=== PATIENT | female | born 1995 | race Caucasian/White ===

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

== ENCOUNTER 2017-10-13 15:35 | Emergency (ER) | payer MEDICAID ==
--- NOTE | 2017-10-13 19:38 | ED ---
GI/ HPI - HPI Summary HPI Summary: 25 weeks pt here w/ vaginal itching and swelling for the past few days. She reports this started as itching and she's been scratching the area - she now has one-sided labial swelling with superficial bleeding which she believes is from excoriation. Denies fevers ,chills, nausea, chest pain, SOB, vomiting, diarrhea, abdominal pain, urinary symptoms, vaginal bleeding/spotting , contractions and flank pain. She has history of BV when she first got - doesn't feel the same. This was treated with MetroGel successfully and she has had no symptoms since. She does admit she has been wearing thongs daily. Otherwise healthy - takes vitamins before bed. Has not had intercourse since symptoms started. Leading up to this sample: No ongoing a - History of Current Complaint Chief Complaint: EDUrogenitalProblems Time Seen by Provider: 10/13/17 18:10 Stated Complaint: OB PROBLEM/20 WKS Hx Obtained From: Patient, Family/Topographical Surveyor - male organic chemistry professor Hx Last Menstrual Period: 1 WEEK AGO, SPOTTING Pain Intensity: 7 - Allergy/Home Medications Allergies/Adverse Reactions: Allergies Allergy/AdvReac Type Severity Reaction Status Date / Time bee venom protein (honey bee) Allergy Severe Swelling Verified 10/13/17 18:28 bupropion [From Wellbutrin] Allergy Hives Verified 10/13/17 18:28 Home Medications: Home Medications Pnv No.95/Ferrous Fum/Folic AC [ Formula Tablet] 1 tab PO DAILY [History Confirmed 10/13/17] Sertraline* [Zoloft*] 25 mg PO BEDTIME 10/13/17 [History Confirmed 10/13/17] PMH/Surg Hx/FS Hx/Imm Hx Previously Healthy: Yes Endocrine/Hematology History: Denies: Hx Diabetes, Hx Thyroid Disease Cardiovascular History: Reports: Hx Hypertension - NO MEDS Respiratory History: Denies: Hx Asthma, Hx Chronic Obstructive Pulmonary Disease (COPD) GI History: Denies: Hx Ulcer History: Reports: Other Problems/Disorders - BV in Infectious Disease History: No Infectious Disease History: Denies: Hx Clostridium Difficile, Hx Hepatitis, Hx Human Immunodeficiency Virus (HIV), Hx of Known/Suspected MRSA, Hx Shingles, Hx Tuberculosis, Hx Known/ Suspected VRE, Hx Known/Suspected VRSA, History Other Infectious Disease, Traveled Outside the [place] in Last 30 Days - Family History Known Family History: Negative: Cardiac Disease, Hypertension, Diabetes - Social History Alcohol Use: None Substance Use Type: Reports: Marijuana Substance Use Comment - Amount & Last Used: Stopped smoking at 8 weeks Smoking Status (MU): Current Every Day Smoker Type: Cigarettes Amount Used/How Often: 1 PPD, 7+ YEARS Review of Systems Constitutional: Negative Negative: Fever, Chills, Fatigue Eyes: Negative ENT: Negative Cardiovascular: Negative Respiratory: Negative Gastrointestinal: Negative Positive: see HPI Musculoskeletal: Negative Skin: Negative Neurological: Negative Psychological: Normal All Other Systems Reviewed And Are Negative: Yes Physical Exam Triage Information Reviewed: Yes Vital Signs On Initial Exam: Initial Vitals Temp Pulse Resp BP Pulse Ox 98.3 F 89 16 127/73 99 10/13/17 15:49 10/13/17 15:49 10/13/17 15:49 10/13/17 15:49 10/13/17 15:49 Vital Signs Reviewed: Yes Appearance: Positive: Well-Appearing, No Pain Distress, Well-Nourished Skin: Positive: Warm, Skin Color Reflects Adequate Perfusion, Dry Head/Face: Positive: Normal Head/Face Inspection Eyes: Positive: Normal, EOMI, Conjunctiva Clear ENT: Positive: Normal ENT inspection, Hearing grossly normal, Pharynx normal - mucosa moist Respiratory/Lung Sounds: Positive: Breath Sounds Present Cardiovascular: Positive: Normal Abdomen Description: Positive: Nontender - ab Bowel Sounds: Positive: Present Pelvic Exam: Positive: No Cerv. Motion Tender, Other - External: RT labia majora w/ mild bogginess, edema and erythema - no aleja nodule, pustule or excoriation - mild TTP Internal: copious white curdy d/c. Negative: Active Bleeding, Blood Musculoskeletal: Positive: Normal, Strength/ROM Intact Neurological: Positive: Normal, Sensory/Motor Intact, Alert, Oriented to Person Place, Time, CN Intact II-III Psychiatric: Positive: Normal - in good spirits, interacts well w/ her partner Diagnostics - Vital Signs Vital Signs Temp Pulse Resp BP Pulse Ox 10/13/17 18:27 98.8 F 10/13/17 15:49 98.3 F 89 16 127/73 99 - Laboratory Lab Statement: Any lab studies that have been ordered have been reviewed, and results considered in the medical decision making process. GIGU Course/Dx - Course Course Of Treatment: FHR: 140's - WNL. SUspect yeast vaginitis so will start tx - other cx's taken as she has h/o BV. Advised to f/u w/ OBGYN re: labial swelling if continues for concern of early Batholin's cyst - today, simply appears to be edema from irritation. Danger s/sx of premature reviewed - return to ED if present. - Diagnoses Provider Diagnoses: Yeast vaginitis, Discharge - Sign-Out/Discharge Documenting (check all that apply): Discharge - Discharge Plan Condition: Stable Disposition: HOME Prescriptions: Miconazole VAG.SUPP* [Monistat7*] 100 mg VAGINAL BEDTIME #7 vag.supp Patient Education Materials: (ED), Yeast Infection (ED) Referrals: Mendoza Felipe MD [Medical Doctor] - Additional Instructions: You appear to have a yeast infection. It is important that you complete your medication treatment as directed. He may also improve her symptoms by consuming foods with live active cultures (ie. yogurt) and/or taking a probiotic. Avoid sitting and moist undergarments, wearing thongs, using lubricants, etc. If symptoms persist, follow up with her PROFESSOR OF PRACTICE. *If you develop abdominal pain, cramping, vaginal bleeding or spotting, fevers or chills return to the emergency department. NOTE: the area of swelling along your Right labia could be irritation/ inflammation from itching along w/ infection. If this subsides with treatment, no further action necessary. However if this does not improve, follow-up with OBGYN as you may have beginning of a Bartholins cyst. - Billing Disposition and Condition Condition: STABLE Disposition: HOME
[2017-10-13 20:26] VITALS: BP 129/69
== END 2017-10-13 20:26 | disposition home or self-care (01) ==
LOC: ED 15:35
DX: O23.592 Infection of other part of genital tract in pregnancy, second trimester (principal); Z3A.25 25 weeks gestation of pregnancy; F17.210 Nicotine dependence, cigarettes, uncomplicated; Z86.79 Personal history of other diseases of the circulatory system
CPT/HCPCS: 87480; 87491; 87510; 87591; 87661; 99282

== ENCOUNTER 2018-01-30 07:42 | Inpatient (IN) | payer MEDICAID ==
--- NOTE | 2018-01-30 08:05 | HP ---
General Information - Reason for Visit SROM - General Information Maternal Age: 22 Grav: 1 Para: 0 SAB: 0 IEA: 0 Estimated Due Date: 01/21/18 Determined By: Early Ultrasound Maternal Blood Type and Rh: O Negative - Results this Serology/RPR Result: Non-Reactive Rubella Result: Immune HBsAg Result: Negative HIV Result: Negative GBS Culture Result: Negative Past Medical History Delivery History: See Records Pertinent Past Medical History: Non-Contributory Pertinent Past Surgical History: None Pertinent Family History: See Records - DM - Antepartal Records Antepartal Records: Reviewed, Complicated by: - anemia, placenta previa(resolved), tobacco use Review of Systems Constitutional: Uncomfortable CV Complaint: No Respiratory: Shortness of Breath: No Gastrointestinal: No Nausea/Vomiting, Normal Bowel Movement Genitourinary: Leaking Fluid, No Dysuria, No Bleeding Musculoskeletal: Contractions Neurological: No Headache, No Visual Changes Movement: Normal Exam Allergies/Adverse Reactions: Allergies bee venom protein (honey bee) Allergy (Severe, Verified 10/13/17 18:28) Swelling bupropion [From Wellbutrin] Allergy (Verified 10/13/17 18:28) Hives T:98.8, P:106, R:20, B/P: 156/81, O2:98 - Measurements Height: 5 ft 5 in Weight: 179 lb Body Mass Index (BMI): 29.7 Pre- Weight: 130 lb - Exam Breast: Breast Exam Deferred CVA: No CVA Tenderness Extremities: No Edema Heart: Normal Rhythm/Heart Sounds HEENT: No Significant Findings Lungs: Clear Bilaterally Rectal: Rectal Exam Deferred Reflexes: DTR 2+ Thyroid: No Thyromegaly - Abdominal Exam Abdomen Exam: Fundal Height Consistent with Dates - Ultrasound/Biophysical Profile Ultrasound Status: Not Done Targeted Exam Findings See L&D Outpatient Visit Provider Note for Findings: N/A Estimated Weight: 7lbs 12oz Cervical Exam: 3cm Effacement: 80% Station: -1 Presenting Part: Vertex Membrane Status: SROM Amniotic Fluid Evaluation: Gross Rupture, Clear Bleeding/Discharge: None EFM Findings - External Monitor Findings Baseline Heart Rate: 140 External Monitor Findings: Accelerations Present, No Pattern of Variable or Late Decelerations, Variability Moderate, Baseline Stable Contractions: Regular, Moderate, 45-90 Seconds Contraction Frequency: 4-5 Assessment/Plan - Assessment SROM, early labor - Plan Plan: Admit - Anticipate Vaginal Delivery - Date/Time of Admission Date of Admission: 01/30/18 Time of Admission: 08:00
[2018-01-30 09:30] LABS: ABS Basophils 0 10^3/ul (0-0.2); ABS Eosinophils 0.1 10^3/ul (0-0.6); ABS Lymphocytes 1.9 10^3/ul (1.0-4.8); ABS Neutrophils 9.7 10^3/ul (1.5-7.7); ABS Nucleated RBC 0.1 10^3/ul; Hematocrit 35 % (35-47); Hemoglobin 12.3 g/dl (12.0-16.0); Lymphocyte % 14.8 % (25-47); Mean Corpuscular HGB Conc 35 g/dl (31-36); Mean Corpuscular Hemoglobin 32 pg (27-31); Mean Corpuscular Volume 91 fL (80-97); Mean Platelet Volume 9.9 um3 (7.4-10.4); Nucleated Red Blood Cells % 0.5; Platelet Count 174 10^3/ul (150-450); Red Blood Count 3.87 10^6/ul (4.00-5.40); Red Cell Distribution Width 13 % (10.5-15); White Blood Count 12.8 10^3/ul (3.5-10.8)
--- NOTE | 2018-01-30 12:28 | PN ---
Progress Note - Progress Note Date of Service: 01/30/18 SOAP: Subjective: [Pt reports increased contractions and increasing intensity. Pt is still coping well and does not desire epidural for pain mgmt. ] Objective: [BP:141/78, P:90 r:20, t:97.9] Assessment: [srom EARLY LABOR] Plan: [Cont care, reevaluate PRN]
[2018-01-30] MEDS ORDERED: Oxytocin in LR* 20 UNITS/1,000 ML BAG IVPB ONE (18:11)
--- NOTE | 2018-01-30 18:15 | PN ---
Progress Note - Progress Note Date of Service: 01/30/18 SOAP: Subjective: [Pt reports contraction are not increasing in intensity "by much". Reviewed options and pt agrees to start pitocin. ] Objective: [BP: 158/78, R:20, T:98.1 Baseline: 125bpm, mod variability, +accels, -decels] Assessment: [22 y.o. 41w 2d EGA, SROM, protracted labor NST cat 1] Plan: [1) Reviewed risks versus benefits of expectant mgmt versus augmentation. Pt elects to start pitocin augmentation 2) Reevaluate PRN ]
[2018-01-30] MEDS ORDERED: Oxytocin in LR* 20 UNITS/1,000 ML BAG IVPB SCH (19:00)
--- NOTE | 2018-01-30 22:02 | PN ---
Progress Note - Progress Note Date of Service: 01/30/18 SOAP: Subjective: [Pt reporting increased pressure and back and hip pain. Pt still coping well with contractions with family support, alternating between lying down, ball, hands and knees and toilet. ] Objective: [Pitocin at 3mu baseline: 125bpm, +accels, -decels, mod variability cervix: 6-7cm/100/-1] Assessment: [22 y.o. EGA 41w and 2d. Active labor] Plan: [1) Anticipate vaginal 2) Position changes to encourage descent 3) Therapeutic support]
[2018-01-30] MEDS ORDERED: fentaNYL* 50 MCG/ML 2 ML VIAL (100 MCG VIAL) ONE (23:25)
[2018-01-30] MEDS ORDERED: fentaNYL* 50 MCG/ML 2 ML VIAL (100 MCG VIAL) IV ONE (23:26)
[2018-01-31] MEDS ORDERED: OBEPIDURAL* 250 ML EPIDURAL ONE (01:12)
--- NOTE | 2018-01-31 01:56 | PN ---
Progress Note - Progress Note Date of Service: 01/31/18 Note: Pt vomiting, coping poorly and with strong urge to push. cervical exam 9cm, a trial of pushing was attempted to bring baby lower. On first push cervix reduced with descent. heart rate dropped with the next contraction into the 70s-90s. Intrauterine resuscitation was initiated with position changes, O2 , and pitocin was stopped. Dr. Miranda called and anesthesia. After approx 13 min decel, heart rate returned to a baseline of 125. After several minutes: + accels, mod variability and early decels noted. Pt was counseled on risk versus benefits of c/s if heart rate dropped again and pt expresses understanding. Pt agreeable to try epidural for pain relief and to labor down without pushing. Plan discussed with Dr. Miranda who agrees to epidural, labor down, reinitiate pitocin and reevaluate PRN. Pt comfortable after epidural and resting well. Cat 1 NST.
[2018-01-31] MEDS ORDERED: Famotidine TAB* 20 MG PO PRN (01:58)
[2018-01-31] MEDS ORDERED: Sodium Citrate/Citric Acid* 15 ML UDC PO PRN (01:58)
[2018-01-31] MEDS ORDERED: Phenylephrine IV* 40 MCG/ML 10 ML SYRINGE IV PUSH PRN ×2 (01:58)
[2018-01-31] MEDS ORDERED: Nalbuphine* 10 MG/ML 1 ML VIAL IV PRN (02:04)
[2018-01-31] MEDS ORDERED: Naloxone* 2 MG in NS 0.9% 250 ML* 250 ML IV PRN (02:04)
[2018-01-31] MEDS ORDERED: diPHENhydraMINE IV* 50 MG/ML 1 ml VIAL (BENADRYL) IV PRN (02:04)
[2018-01-31] MEDS ORDERED: Glycerin ADULT SUPP PR PRN (06:58)
[2018-01-31] MEDS ORDERED: RHO D Immune Globulin (HUMAN)* 300 MCG = 1,500 I.U. INJ IM ONE (06:58)
[2018-01-31] MEDS ORDERED: Acetaminophen TAB* 325 MG PO PRN (06:58)
[2018-01-31] MEDS ORDERED: Oxytocin in LR* 20 UNITS/1,000 ML BAG IVPB SCH (07:00)
--- NOTE | 2018-01-31 07:12 | PROCNOTE ---
[facility] OB: Delivery Note - Delivery A Date of : 01/31/18 Time of : 06:27 Sex: Female Score 1 Minute: 9 Score 5 Minutes: 9 Gestational Age in Weeks and Days at Delivery: 41 Weeks and 3 Days Delivery Method: Spontaneous Vaginal Labor: Spontaneous Did Patient attempt ?: N/A, No Previous Amniotic Fluid: Clear Estimated Blood Loss: 250 Anesthesia/Analgesia: IM/IV, CEI for Labor, Nitrous-Labor Delivered By: Estela Osei - Nursery Level of Nursery: Regular/Bedside - Perineum Perineal Injury: 1st Degree Perineal Repair: By Delivering Practioner - Events Delivery Events of Note: Pitocin During Labor, Pitocin Only After Delivery, Supplemental O2 to Mother, Internal Scalp EKG
[2018-01-31] MEDS: Ibuprofen TAB* 600 MG PO PRN ×3 (10:06→22:54)
[2018-01-31] MEDS: Docusate CAP* 100 MG PO SCH ×3 (10:06→21:14)
[2018-01-31] MEDS: Dibucaine 1% 28.35 GM TUBE PR PRN (11:08)
[2018-01-31] MEDS: Witch Hazel PAD* JAR TOPICAL PRN (11:08)
[2018-02-01] MEDS: Ibuprofen TAB* 600 MG PO PRN ×3 (05:13→19:58)
[2018-02-01 06:14] LABS: ABS Basophils 0.1 10^3/ul (0-0.2); ABS Eosinophils 0.1 10^3/ul (0-0.6); ABS Lymphocytes 2.8 10^3/ul (1.0-4.8); ABS Monocytes 1.4 10^3/ul (0-0.8); ABS Neutrophils 16.4 10^3/ul (1.5-7.7); ABS Nucleated RBC 0 10^3/ul; Eosinophil % 0.5 % (0-6); Hematocrit 30 % (35-47); Hemoglobin 10.8 g/dl (12.0-16.0); Lymphocyte % 13.6 % (25-47); Mean Corpuscular HGB Conc 36 g/dl (31-36); Mean Corpuscular Hemoglobin 32 pg (27-31); Mean Corpuscular Volume 90 fL (80-97); Mean Platelet Volume 9.5 um3 (7.4-10.4); Nucleated Red Blood Cells % 0.1; Platelet Count 147 10^3/ul (150-450); Red Blood Count 3.36 10^6/ul (4.00-5.40); Red Cell Distribution Width 13 % (10.5-15); White Blood Count 20.9 10^3/ul (3.5-10.8)
[2018-02-01] MEDS: Simethicone TAB* 80 MG TAB.CHEW PO SCH ×2 (08:12→08:13)
[2018-02-01] MEDS: OBEPIDURAL* 250 ML EPIDURAL SCH (08:12)
[2018-02-01] MEDS: Docusate CAP* 100 MG PO SCH ×3 (08:34→19:58)
[2018-02-01] MEDS: Ferrous Gluconate TAB* 324 MG TAB PO SCH (08:38)
[2018-02-01] MEDS: Nicotine PATCH 7 MG/24 HR* PATCH TRANSDERM SCH (15:17)
[2018-02-01] MEDS: Dibucaine 1% 28.35 GM TUBE PR PRN (15:21)
[2018-02-01] MEDS ORDERED: Nicotine Patch Removal NOTE PATCH OFF SCH (21:00)
[2018-02-02] MEDS: Ferrous Gluconate TAB* 324 MG TAB PO SCH (07:16)
[2018-02-02] MEDS: Ibuprofen TAB* 600 MG PO PRN (07:24)
[2018-02-02] MEDS: Docusate CAP* 100 MG PO SCH (07:24)
[2018-02-02 07:58] VITALS: BP 155/69
[2018-02-02] MEDS: Witch Hazel PAD* JAR TOPICAL PRN (10:11)
[2018-02-02] MEDS: Dibucaine 1% 28.35 GM TUBE PR PRN (10:11)
[2018-02-02] MEDS: Nicotine PATCH 7 MG/24 HR* PATCH TRANSDERM SCH (10:11)
== END 2018-02-02 11:17 | disposition home or self-care (01) | DRG 560 ==
LOC: MCHOBOUT 07:42 → MCHOB 08:02
PROVIDERS: ADMIT Midwife; ATTEND Midwife
PROC: 4A1HXCZ Monitoring of Products of Conception, Cardiac Rate, External Approach (ICD-10-PCS; 2018-01-30)
PROC: 10E0XZZ Delivery of Products of Conception, External Approach (ICD-10-PCS; principal; 2018-01-31)
PROC: 10H073Z Insertion of Monitoring Electrode into Products of Conception, Via Natural or Artificial Opening (ICD-10-PCS; 2018-01-31)
PROC: 4A1H74Z Monitoring of Products of Conception, Cardiac Electrical Activity, Via Natural or Artificial Opening (ICD-10-PCS; 2018-01-31)
PROC: 0HQ9XZZ Repair Perineum Skin, External Approach (ICD-10-PCS; 2018-01-31)
DX: O48.0 Post-term pregnancy (principal); O63.9 Long labor, unspecified; O69.3XX0 Labor and delivery complicated by short cord, not applicable or unspecified; O99.334 Smoking (tobacco) complicating childbirth; O76 Abnormality in fetal heart rate and rhythm complicating labor and delivery; O70.0 First degree perineal laceration during delivery; Z3A.41 41 weeks gestation of pregnancy; Z37.0 Single live birth; Z88.8 Allergy status to other drugs, medicaments and biological substances; Z91.030 Bee allergy status; Z67.41 Type O blood, Rh negative
CPT/HCPCS: 36415; 85025; 85461; 86850; 86900; 86901; A9270-GY; J1200; J2790; J3010

== ENCOUNTER 2018-08-19 11:57 | Inpatient (IN) | payer MEDICAID, OTHER ==
--- NOTE | 2018-08-19 13:34 | ED ---
Psychiatric Complaint - HPI Summary HPI Summary: A 23 y/o F presents to ED for MHE due to SI that has been worsening over the past week. She denies having a plan. Patient says she became depressed after giving to her first child 7 months ago. She states the baby is healthy, taking formula and is a "good" baby. The baby's father has not been in the picture for the past 4 months, prior to that though, he would help baby sit. She says they are working on their relationship. The patient's mother is in the area and trinh to provide support. She denies previous SI, MH diagnoses, as well as any hospital psych admission. [place] [id number] [place] she did elaborate further on this. 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 She drank a [place] ice tea and a beer last night; she smokes marijuana sometimes to calm herself down. She says she cried a lot last night, until she smoked the marijuana. Today, a co-worker asked her how she was doing and that caused her to start crying again. Pt is not tearful at bedside with ED provider. - History Of Current Complaint Chief Complaint: EDMentalHealth Time Seen by Provider: 08/19/18 12:52 Hx Obtained From: Patient Hx Last Menstrual Period: 1 WEEK AGO, SPOTTING Onset/Duration: Gradual Onset, Lasting Days, Still Present Severity Initially: Moderate Severity Currently: Moderate Character: Depressed Aggravating Factor(s): Recent Stress Has Suicidal: Reports: Thoughts. Denies: With A Plan - Allergies/Home Medications Allergies/Adverse Reactions: Allergies Allergy/AdvReac Type Severity Reaction Status Date / Time bee venom protein (honey bee) Allergy Severe Swelling Verified 08/19/18 12:47 bupropion [From Wellbutrin] Allergy Hives Verified 08/19/18 12:47 pumpkin Allergy Hives Verified 08/19/18 12:47 Home Medications: Home Medications NK [No Home Medications Reported] 08/19/18 [History Confirmed 08/19/18] PMH/Surg Hx/FS Hx/Imm Hx Previously Healthy: Yes Endocrine/Hematology History: Denies: Hx Diabetes, Hx Thyroid Disease Cardiovascular History: Reports: Hx Hypertension - NO MEDS Respiratory History: Denies: Hx Asthma, Hx Chronic Obstructive Pulmonary Disease (COPD) GI History: Denies: Hx Ulcer History: Reports: Other Problems/Disorders - BV in Infectious Disease History: No Infectious Disease History: Denies: Hx Clostridium Difficile, Hx Hepatitis, Hx Human Immunodeficiency Virus (HIV), Hx of Known/Suspected MRSA, Hx Shingles, Hx Tuberculosis, Hx Known/ Suspected VRE, Hx Known/Suspected VRSA, History Other Infectious Disease, Traveled Outside the [place] in Last 30 Days - Family History Known Family History: Negative: Cardiac Disease, Hypertension, Diabetes - Social History Occupation: Employed Full-time Lives: With Family Alcohol Use: Rare Substance Use Type: Reports: Marijuana Substance Use Comment - Amount & Last Used: Stopped smoking at 8 weeks Hx Tobacco Use: Yes Smoking Status (MU): Heavy Every Day Tobacco Smoker Type: Cigarettes Amount Used/How Often: 1-7 cigarettes/day Review of Systems Negative: Fever, Chills Negative: Erythema Negative: Sore Throat Negative: Chest Pain Negative: Shortness Of Breath, Cough Negative: Abdominal Pain, Vomiting, Nausea Negative: dysuria, hematuria Negative: Myalgia, Edema Negative: Rash Neurological: Other - neg: weakness Psychological: Other - pos: SI Positive: Depressed All Other Systems Reviewed And Are Negative: Yes Physical Exam - Summary Physical Exam Summary: General: Well appearing, no distress Cardiovascular: Skin is well perfused Pulmonary: No respiratory distress, no tachypnea Abdomen: Non-distended Skin: Warm, pink, dry Psych: Normal affect Neuro: A&Ox3 Triage Information Reviewed: Yes Vital Signs On Initial Exam: Initial Vitals Temp Pulse Resp BP Pulse Ox 97.7 F 76 17 150/91 96 08/19/18 12:06 08/19/18 12:06 08/19/18 12:06 08/19/18 12:06 08/19/18 12:06 Vital Signs Reviewed: Yes Diagnostics - Vital Signs Vital Signs Temp Pulse Resp BP Pulse Ox 08/19/18 12:06 97.7 F 76 17 150/91 96 - Laboratory Result Diagrams: 08/19/18 14:10 08/19/18 14:10 Lab Statement: Any lab studies that have been ordered have been reviewed, and results considered in the medical decision making process. Course/Dx - Course Course Of Treatment: Pt is a 23 y/o F presenting to ED for MHE due to SI that has been worsening over the past week. She denies having a plan. Patient says she became depressed after giving to her first child 7 months ago. She states the baby is healthy, taking formula and is a "good" baby. The baby's father has not been in the picture for the past 4 months, prior to that though, he would help baby sit. She says they are working on their relationship. The patient's mother is in the area and trinh to provide support. She denies previous SI, MH diagnoses, as well as any hospital psych admission. Pt is medically clear for E at 1325. AT 1950: Per packaging engineer: Pt will be involuntarily admitted by Dr. Hardwick, psych. - Differential Dx/Clinical Impression Provider Diagnosis: Suicidal ideation, Post depression Discharge - Sign-Out/Discharge Documenting (check all that apply): Patient Departure - ADMIT U Patient Received Moderate/Deep Sedation with Procedure: No - Discharge Plan Condition: Stable Disposition: ADMITTED TO [facility] Referrals: No Primary Care Phys,NOPCP [Primary Care Provider] - - Attestation Statements Document Initiated by Scribe: Yes Documenting Scribe: Ashu Cueva Provider For Whom Scribe is Documenting (Include Credential): Dr. Cliff Soto MD Scribe Attestation: I, bebeto Calderoned for Dr. Cliff Soto MD on 08/19/18 at 1950. Status of Scribe Document: Ready
[2018-08-19 14:29] LABS: ABS Basophils 0.1 10^3/ul (0-0.2); ABS Eosinophils 0.1 10^3/ul (0-0.6); ABS Lymphocytes 1.9 10^3/ul (1.0-4.8); ABS Monocytes 0.7 10^3/ul (0-0.8); ABS Neutrophils 6.1 10^3/ul (1.5-7.7); ABS Nucleated RBC 0 10^3/ul; Eosinophil % 1.1 %; Hematocrit 43 % (35-47); Hemoglobin 14.6 g/dl (12.0-16.0); Mean Corpuscular HGB Conc 34 g/dl (31-36); Mean Corpuscular Hemoglobin 31 pg (27-31); Mean Corpuscular Volume 90 fL (80-97); Mean Platelet Volume 8.7 fL (7.4-10.4); Nucleated Red Blood Cells % 0.1; Platelet Count 222 10^3/ul (150-450); Red Blood Count 4.74 10^6/ul (4.00-5.40); Red Cell Distribution Width 13 % (10.5-15); White Blood Count 8.9 10^3/ul (3.5-10.8)
[2018-08-19 14:43] LABS: Urine Appearance Cloudy; Urine Bacteria Absent (Absent); Urine Bilirubin Negative (Negative); Urine Blood 1+ (Negative); Urine Color Yellow; Urine Glucose Negative (Negative); Urine Ketones Trace (Negative); Urine Nitrite Negative (Negative); Urine Protein Negative (Negative); Urine Red Blood Cell Trace(0-2/hpf) (Absent); Urine Specific Gravity 1.012 (1.010-1.030); Urine Squamous Epithelial Cell Present (Absent); Urine Urobilinogen Negative (Negative); Urine White Blood Cell Trace(0-5/hpf) (Absent)
[2018-08-19 14:46] LABS: ALT 15 U/L (7-52); AST 18 U/L (13-39); Albumin 4.8 g/dL (3.2-5.2); Albumin/Globulin Ratio 1.5 (1-3); Alkaline Phosphatase 51 U/L (34-104); Anion Gap 9 mmol/L (2-11); BUN/Creatinine Ratio 16.9 (8-20); Blood Urea Nitrogen 12 mg/dL (6-24); CO2 Carbon Dioxide 25 mmol/L (22-32); Calcium 10.5 mg/dL (8.6-10.3); Chloride 104 mmol/L (101-111); EGFR African American 125.7 (>60); EGFR Non-African American 103.9 (>60); Globulin 3.1 g/dL (2-4); Glucose 82 mg/dL (70-100); Potassium 3.9 mmol/L (3.5-5.0); Sodium 138 mmol/L (135-145); Total Protein 7.9 g/dL (6.4-8.9)
[2018-08-19 14:46] LABS: Barbiturates Urine Screen None Detected (None Detect); Benzodiazepine Urine Screen None Detected (None Detect); Urine Cannabinoids Screen Presumptive Positive (None Detect)
[2018-08-19 14:57] LABS: Acetaminophen < 15 mcg/mL; Alcohol < 10 mg/dL (<10); Salicylate < 2.50 mg/dL (<30)
[2018-08-19 15:11] LABS: TSH (Thyroid Stimulating Horm) 0.45 mcIU/mL (0.34-5.60)
[2018-08-19] MEDS ORDERED: Acetaminophen TAB* 325 MG PO PRN (22:23)
[2018-08-19] MEDS: Nicotine Inhaler* 10 MG AMP INH PRN (22:37)
[2018-08-19] MEDS: Mouth Piece, Nicotine* 1 EACH CARTRIDGE INH PRN (22:37)
[2018-08-20 08:13] LABS: HDL Cholesterol 50.1 mg/dL
[2018-08-20] MEDS: Nicotine PATCH 21 MG/24 HR* PATCH TRANSDERM SCH (08:46)
[2018-08-20] MEDS: Multivitamins/Minerals TAB PO SCH (08:46)
[2018-08-20] MEDS: Nicotine Inhaler* 10 MG AMP INH PRN ×4 (08:47→20:32)
[2018-08-20] MEDS ORDERED: PARoxetine HCL TAB* 10 MG PO SCH (14:00)
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
[2018-08-20 14:43] LABS: HCG Pregnancy < 0.60 mIU/mL
[2018-08-20] MEDS ORDERED: PARoxetine HCL TAB* 20 MG PO SCH (15:00)
[2018-08-20] MEDS: Al Hydrox/Mg Hydrox/Simet LIQ* 30 ML UDC PO PRN (19:11)
[2018-08-20] MEDS: traZODone TAB* 50 MG TAB PO SCH (20:32)
[2018-08-20] MEDS: Nicotine Patch Removal NOTE PATCH OFF SCH (20:33)
[2018-08-21] MEDS: Nicotine Inhaler* 10 MG AMP INH PRN ×4 (05:48→18:58)
[2018-08-21] MEDS: Nicotine PATCH 21 MG/24 HR* PATCH TRANSDERM SCH (08:31)
[2018-08-21] MEDS: PARoxetine HCL TAB* 20 MG PO SCH (08:32)
[2018-08-21] MEDS: Multivitamins/Minerals TAB PO SCH (08:32)
[2018-08-21] MEDS: Mouth Piece, Nicotine* 1 EACH CARTRIDGE ONE ×2 (11:16→11:22)
[2018-08-21] MEDS: Mouth Piece, Nicotine* 1 EACH CARTRIDGE INH PRN (11:16)
[2018-08-21] MEDS: Al Hydrox/Mg Hydrox/Simet LIQ* 30 ML UDC PO PRN (11:17)
[2018-08-21 13:04] LABS: Hepatitis C Antibody Nonreactive (Nonreactive)
[2018-08-21 14:43] LABS: Herpes Simplex Virus I IgG AB Negative (Negative); Herpes Simplex Virus II IgG AB Negative (Negative)
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
[2018-08-21] MEDS ORDERED: Ondansetron TAB* 4 MG PO PRN (18:08)
[2018-08-21] MEDS: traZODone TAB* 50 MG TAB PO SCH (21:46)
[2018-08-21] MEDS: Nicotine Patch Removal NOTE PATCH OFF SCH (21:46)
[2018-08-22] MEDS: Multivitamins/Minerals TAB PO SCH (09:45)
[2018-08-22] MEDS: Nicotine PATCH 21 MG/24 HR* PATCH TRANSDERM SCH (09:45)
[2018-08-22] MEDS: PARoxetine HCL TAB* 20 MG PO SCH (09:47)
[2018-08-22] MEDS: Nicotine Inhaler* 10 MG AMP INH PRN ×4 (09:47→21:42)
[2018-08-22] MEDS: Al Hydrox/Mg Hydrox/Simet LIQ* 30 ML UDC PO PRN (10:19)
[2018-08-22 11:58] LABS: Herpes Simplex IgM IFA Negative (Negative)
[2018-08-22] MEDS: Ibuprofen TAB* 600 MG PO PRN (16:44)
[2018-08-22] MEDS: Nicotine Patch Removal NOTE PATCH OFF SCH (21:40)
[2018-08-22] MEDS: traZODone TAB* 50 MG TAB PO SCH (21:43)
[2018-08-23] MEDS: Ibuprofen TAB* 600 MG PO PRN (05:55)
[2018-08-23] MEDS: Nicotine Inhaler* 10 MG AMP INH PRN ×5 (05:55→22:36)
[2018-08-23] MEDS: Mouth Piece, Nicotine* 1 EACH CARTRIDGE INH PRN (08:53)
[2018-08-23] MEDS: Sertraline* 50 MG TAB PO SCH (08:53)
[2018-08-23] MEDS ORDERED: Mouth Piece, Nicotine* 1 EACH CARTRIDGE ONE (08:53)
[2018-08-23] MEDS: Multivitamins/Minerals TAB PO SCH (09:03)
[2018-08-23] MEDS: Nicotine PATCH 21 MG/24 HR* PATCH TRANSDERM SCH (09:03)
--- NOTE | 2018-08-23 12:08 | PN ---
Subjective - Subjective Date of Service: 08/23/18 Service Type: [id number] Hosp care 25 min moderate complexity Subjective: Nursing Report: Patient was visible on unit, no chemical restraints or PRNs. Attending group activities. CC: "I have been getting a lot out of group Patient was seen and evaluated in the common room. Her mother was contacted Isidoro([phone]) who plans to come on Thursday at 11am. She said that her daughter never takes time for herself and has poor judgment with relationships. The patient reported she feels safe on the unit and is interacting with peers. She said that the medications make her have more energy. She reported less sleep and adequate appetite. She plans to stay with her mother once she is discharged. She reported having an adequate appetite and sleep. The patient reports attending and participating in day groups but staff reports that she is disruptive in group and talks out of turn. She denied suicidal and or homicidal ideation intent or plan. She denied auditory and or visual hallucinations. Objective - Appearance Dysmorphic Features: No Hygiene: Normal Grooming: Well Kept - Behavior Exhibits Abnormal Movement: No - Attitude and Relatedness Attitude and Relatedness: Superficially Cooperative Eye Contact: Fair - Speech Quality: Unpressured Latencies: Short Quantity: Copious - Mood Patient's Decription of Mood: "Okay" - Affect Observed Affect: Tense Affect Consistent with: Euthymia - Thought Process Patient's Thought Process: Goal Directed Thought Content: No Passive Wish, No Suicidal Planning, No Homicidal Ideation, No Paranoid Ideation - Sensorium Experiencing Hallucinations: No, Sensorium is Clear Type of Hallucinations: Visual: No, Auditory: No, Command: No - Level of Consciousness Level of Consciousness: Alert Orientation: Yes Intact, Yes Orientated to Time, Yes Orientated to Place, Yes Orientated to Person - Impulse Control Impulse Control: Impaired - Insight and Judgement Insight and Judgement: Impaired - Group Participation Particating in Group Activities: Yes - Medication Management Medication Management Adherence: Yes Assessment - Assessment Merits Inpatient Hospitalization: For Immediate Safety Inpatient DSM-V Dx: O99.345 Clinical Impression: 23 y.o. single, female, 7 months post-gravid, presenting on a voluntary status with depression and suicidal statements following a conflict with her daughter's father. Plan - Plan Treatment Plan: Name: ROBERT DAVALOS Birthdate: 1995 [id number] # Voluntary admission. The patient requires inpatient admission at this time to assure safety, receive treatment and work toward stabilization. #Goals before discharge include: To decrease anxiety and depression D/C Paxil and start zoloft 50mg daily # test negative. #Nicotine inhaler and patch for nicotine replacement #Continue trazodone 50mg qhs DBT for Borderline personality disorder Plan to discharge Thursday Vital Signs Temp Pulse Resp BP Pulse Ox 98.0 F 68 16 138/59 99 08/23/18 07:30 08/23/18 07:30 08/23/18 07:30 08/23/18 07:30 08/23/18 07:30 Laboratory Tests 08/19/18 08/19/18 08/19/18 14:10 14:10 14:10 WBC 8.9 RBC 4.74 Hgb 14.6 Hct 43 MCV 90 MCH 31 MCHC 34 RDW 13 Plt Count 222 MPV 8.7 Neut % (Auto) 68.8 Lymph % (Auto) 21.0 Amador % (Auto) 8.3 Eos % (Auto) 1.1 Baso % (Auto) 0.8 Absolute Neuts (auto) 6.1 Absolute Lymphs (auto) 1.9 Absolute Monos (auto) 0.7 Absolute Eos (auto) 0.1 Absolute Basos (auto) 0.1 Absolute Nucleated RBC 0 Nucleated RBC % 0.1 Sodium 138 Potassium 3.9 Chloride 104 Carbon Dioxide 25 Anion Gap 9 BUN 12 Creatinine 0.71 Est GFR ( Amer) 125.7 Est GFR (Non-Af Amer) 103.9 BUN/Creatinine Ratio 16.9 Glucose 82 Hemoglobin A1c Calcium 10.5 H Total Bilirubin 0.80 AST 18 ALT 15 Alkaline Phosphatase 51 Total Protein 7.9 Albumin 4.8 Globulin 3.1 Albumin/Globulin Ratio 1.5 Triglycerides Cholesterol LDL Cholesterol HDL Cholesterol TSH 0.45 Free T4 Free T3 Beta HCG, Quant Urine Color Yellow Urine Appearance Cloudy Urine pH 5.0 Ur Specific Bowie 1.012 Urine Protein Negative Urine Ketones Trace A Urine Blood 1+ A Urine Nitrate Negative Urine Bilirubin Negative Urine Urobilinogen Negative Ur Leukocyte Esterase Negative Urine WBC (Auto) Trace(0-5/hpf) Urine RBC (Auto) Trace(0-2/hpf) Ur Squamous Epith Cells Present A Urine Bacteria Absent Urine Glucose Negative Salicylates < 2.50 Urine Opiates Screen Acetaminophen < 15 Ur Barbiturates Screen Ur Phencyclidine Scrn Ur Amphetamines Screen U Benzodiazepines Scrn Urine Cocaine Screen U Cannabinoids Screen Serum Alcohol < 10 Syphilis IgG Antibody Hepatitis C Antibody Hepatitis C Ab Index HSV IgM Ab (IFA) HSV I IgG Ab HSV II IgG HIV 1&2 Antibody 08/19/18 08/19/18 08/19/18 14:10 14:10 14:10 WBC RBC Hgb Hct MCV MCH MCHC RDW Plt Count MPV Neut % (Auto) Lymph % (Auto) Amador % (Auto) Eos % (Auto) Baso % (Auto) Absolute Neuts (auto) Absolute Lymphs (auto) Absolute Monos (auto) Absolute Eos (auto) Absolute Basos (auto) Absolute Nucleated RBC Nucleated RBC % Sodium Potassium Chloride Carbon Dioxide Anion Gap BUN Creatinine Est GFR ( Amer) Est GFR (Non-Af Amer) BUN/Creatinine Ratio Glucose Hemoglobin A1c Calcium Total Bilirubin AST ALT Alkaline Phosphatase Total Protein Albumin Globulin Albumin/Globulin Ratio Triglycerides Cholesterol LDL Cholesterol HDL Cholesterol TSH Free T4 1.30 H Free T3 Beta HCG, Quant Urine Color Urine Appearance Urine pH Ur Specific Bowie Urine Protein Urine Ketones Urine Blood Urine Nitrate Urine Bilirubin Urine Urobilinogen Ur Leukocyte Esterase Urine WBC (Auto) Urine RBC (Auto) Ur Squamous Epith Cells Urine Bacteria Urine Glucose Salicylates Urine Opiates Screen Acetaminophen Ur Barbiturates Screen Ur Phencyclidine Scrn Ur Amphetamines Screen U Benzodiazepines Scrn Urine Cocaine Screen U Cannabinoids Screen Serum Alcohol Syphilis IgG Antibody Nonreactive Hepatitis C Antibody Nonreactive Hepatitis C Ab Index < 0.0 HSV IgM Ab (IFA) HSV I IgG Ab Negative HSV II IgG Negative HIV 1&2 Antibody Nonreactive 08/19/18 08/19/18 08/20/18 14:10 14:12 07:28 WBC RBC Hgb Hct MCV MCH MCHC RDW Plt Count MPV Neut % (Auto) Lymph % (Auto) Amador % (Auto) Eos % (Auto) Baso % (Auto) Absolute Neuts (auto) Absolute Lymphs (auto) Absolute Monos (auto) Absolute Eos (auto) Absolute Basos (auto) Absolute Nucleated RBC Nucleated RBC % Sodium Potassium Chloride Carbon Dioxide Anion Gap BUN Creatinine Est GFR ( Amer) Est GFR (Non-Af Amer) BUN/Creatinine Ratio Glucose Hemoglobin A1c Calcium Total Bilirubin AST ALT Alkaline Phosphatase Total Protein Albumin Globulin Albumin/Globulin Ratio Triglycerides Cholesterol LDL Cholesterol HDL Cholesterol TSH Free T4 Free T3 3.90 Beta HCG, Quant < 0.60 Urine Color Urine Appearance Urine pH Ur Specific Bowie Urine Protein Urine Ketones Urine Blood Urine Nitrate Urine Bilirubin Urine Urobilinogen Ur Leukocyte Esterase Urine WBC (Auto) Urine RBC (Auto) Ur Squamous Epith Cells Urine Bacteria Urine Glucose Salicylates Urine Opiates Screen None detected Acetaminophen Ur Barbiturates Screen None detected Ur Phencyclidine Scrn None detected Ur Amphetamines Screen None detected U Benzodiazepines Scrn None detected Urine Cocaine Screen None detected U Cannabinoids Screen Presumptive positive A Serum Alcohol Syphilis IgG Antibody Hepatitis C Antibody Hepatitis C Ab Index HSV IgM Ab (IFA) Negative HSV I IgG Ab HSV II IgG HIV 1&2 Antibody 08/20/18 08/20/18 07:31 07:31 WBC RBC Hgb Hct MCV MCH MCHC RDW Plt Count MPV Neut % (Auto) Lymph % (Auto) Amador % (Auto) Eos % (Auto) Baso % (Auto) Absolute Neuts (auto) Absolute Lymphs (auto) Absolute Monos (auto) Absolute Eos (auto) Absolute Basos (auto) Absolute Nucleated RBC Nucleated RBC % Sodium Potassium Chloride Carbon Dioxide Anion Gap BUN Creatinine Est GFR ( Amer) Est GFR (Non-Af Amer) BUN/Creatinine Ratio Glucose Hemoglobin A1c 4.7 Calcium Total Bilirubin AST ALT Alkaline Phosphatase Total Protein Albumin Globulin Albumin/Globulin Ratio Triglycerides 76 Cholesterol 141 LDL Cholesterol 76 HDL Cholesterol 50.1 TSH Free T4 Free T3 Beta HCG, Quant Urine Color Urine Appearance Urine pH Ur Specific Bowie Urine Protein Urine Ketones Urine Blood Urine Nitrate Urine Bilirubin Urine Urobilinogen Ur Leukocyte Esterase Urine WBC (Auto) Urine RBC (Auto) Ur Squamous Epith Cells Urine Bacteria Urine Glucose Salicylates Urine Opiates Screen Acetaminophen Ur Barbiturates Screen Ur Phencyclidine Scrn Ur Amphetamines Screen U Benzodiazepines Scrn Urine Cocaine Screen U Cannabinoids Screen Serum Alcohol Syphilis IgG Antibody Hepatitis C Antibody Hepatitis C Ab Index HSV IgM Ab (IFA) HSV I IgG Ab HSV II IgG HIV 1&2 Antibody Continued Medication Management: Continue Outpt Medication Medications: Current Medications Acetaminophen (Tylenol Tab*) 650 mg PO Q4H PRN PRN Reason: PAIN; OR TEMP >101 Last Admin: 08/20/18 19:11 Dose: 650 mg Al Hydrox/Mg Hydrox/Simethicone (Maalox Plus*) 30 ml PO Q4H PRN PRN Reason: INDIGESTION Last Admin: 08/22/18 10:19 Dose: 30 ml Device (Nicotine Mouth Piece*) 1 each INH ONCE PRN PRN Reason: CRAVING Last Admin: 08/23/18 08:53 Dose: 1 each Ibuprofen (Motrin Tab*) 600 mg PO Q6H PRN PRN Reason: PAIN Last Admin: 08/23/18 05:55 Dose: 600 mg Multivitamins/Minerals (Theragran/Minerals Tab*) 1 tab PO DAILY [facility] Last Admin: 08/23/18 09:03 Dose: Not Given Nicotine (Nicotine Inhaler*) 10 mg INH Q2H PRN PRN Reason: CRAVING Last Admin: 08/23/18 08:53 Dose: 10 mg Nicotine (Nicotine Patch 21 Mg/24 Hr*) 1 patch TRANSDERM DAILY [facility] Last Admin: 08/23/18 09:03 Dose: Not Given Ondansetron HCl (Zofran Tab*) 4 mg PO Q4H PRN PRN Reason: NAUSEA Pharmacy Profile Note (Nicotine Patch Removal Note*) 1 note PATCH OFF 2100 [facility] Last Admin: 08/22/18 21:40 Dose: Not Given Sertraline HCl (Zoloft*) 50 mg PO DAILY [facility] Last Admin: 08/23/18 08:53 Dose: 50 mg Trazodone HCl (Desyrel Tab*) 50 mg PO BEDTIME [facility] Last Admin: 08/22/18 21:43 Dose: 50 mg - Discharge Plan Discharge Plan: Inpatient Hospitalization
[2018-08-23] MEDS: Nicotine Patch Removal NOTE PATCH OFF SCH (21:56)
[2018-08-23] MEDS: traZODone TAB* 50 MG TAB PO SCH (21:57)
[2018-08-24] MEDS: Nicotine PATCH 21 MG/24 HR* PATCH TRANSDERM SCH (10:29)
[2018-08-24] MEDS: Multivitamins/Minerals TAB PO SCH (10:29)
[2018-08-24] MEDS: Nicotine Inhaler* 10 MG AMP INH PRN ×3 (10:30→21:13)
[2018-08-24] MEDS: Sertraline* 50 MG TAB PO SCH (10:49)
[2018-08-24] MEDS ORDERED: Sertraline* 25 MG TAB PO ONE (12:00)
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
[2018-08-24] MEDS ORDERED: Mouth Piece, Nicotine* 1 EACH CARTRIDGE ONE (14:17)
[2018-08-24] MEDS: traZODone TAB* 50 MG TAB PO SCH (21:44)
[2018-08-24] MEDS: Nicotine Patch Removal NOTE PATCH OFF SCH (23:18)
[2018-08-25] MEDS: Nicotine Inhaler* 10 MG AMP INH PRN (08:57)
[2018-08-25] MEDS: Multivitamins/Minerals TAB PO SCH (08:59)
[2018-08-25] MEDS: Nicotine PATCH 21 MG/24 HR* PATCH TRANSDERM SCH (08:59)
[2018-08-25] MEDS ORDERED: PARoxetine HCL TAB* 20 MG PO SCH (09:00)
[2018-08-25] MEDS ORDERED: Sertraline* 25 MG TAB PO SCH (09:00)
[2018-08-25 10:32] VITALS: BP 136/50
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
== END 2018-08-25 11:20 | disposition home or self-care (01) | DRG 757 ==
LOC: ED 11:57 → BSU 22:22
PROVIDERS: ADMIT Psychiatry & Neurology Psychiatry; ATTEND Psychiatry & Neurology Psychiatry
DX: F53.0 Postpartum depression (principal); R45.851 Suicidal ideations; F43.10 Post-traumatic stress disorder, unspecified; F17.210 Nicotine dependence, cigarettes, uncomplicated; Z62.810 Personal history of physical and sexual abuse in childhood; F41.0 Panic disorder [episodic paroxysmal anxiety]; I10 Essential (primary) hypertension; R63.4 Abnormal weight loss; F60.3 Borderline personality disorder; Z91.030 Bee allergy status; Z91.018 Allergy to other foods; Z72.89 Other problems related to lifestyle; Z88.8 Allergy status to other drugs, medicaments and biological substances; Q63.8 Other specified congenital malformations of kidney; Z68.21 Body mass index [BMI] 21.0-21.9, adult
CPT/HCPCS: 36415; 80053; 80061; 80307; 80320; 80329; 81003; 81015; 83036; 84439; 84443; 84481; 84702; 85025; 86592; 86694; 86695; 86696; 86703; 86803; 87086; 93005; 99222; 99231; 99232; 99238; 99284; A9270-GY; G0480

== ENCOUNTER 2018-10-29 01:46 | Emergency (ER) | payer OTHER ==
[2018-10-29] MEDS ORDERED: Ondansetron ODT TAB* 4 MG PO ONE (01:47)
[2018-10-29] MEDS ORDERED: Ibuprofen TAB* 400 MG PO ONE (01:48)
[2018-10-29] MEDS ORDERED: Cyclobenzaprine TAB* 10 MG PO ONE (01:54)
[2018-10-29] MEDS ORDERED: Cyclobenzaprine TAB* 10 MG ONE (01:55)
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
[2018-10-29 02:10] VITALS: BP 131/76
== END 2018-10-29 02:06 | disposition home or self-care (01) ==
LOC: ED 01:46
DX: S09.90XA Unspecified injury of head, initial encounter (principal); W22.8XXA Striking against or struck by other objects, initial encounter; Y92.9 Unspecified place or not applicable; F17.210 Nicotine dependence, cigarettes, uncomplicated
CPT/HCPCS: 99282; A9270-GY

== ENCOUNTER 2019-01-22 19:01 | Emergency (ER) | payer OTHER ==
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
[2019-01-22 20:50] VITALS: BP 126/71
== END 2019-01-22 20:49 | disposition home or self-care (01) ==
LOC: ED 19:01
DX: M25.561 Pain in right knee (principal); I10 Essential (primary) hypertension; G43.909 Migraine, unspecified, not intractable, without status migrainosus; F41.9 Anxiety disorder, unspecified; F32.9 Major depressive disorder, single episode, unspecified; Z88.8 Allergy status to other drugs, medicaments and biological substances; F17.210 Nicotine dependence, cigarettes, uncomplicated
CPT/HCPCS: 99282

== ENCOUNTER 2019-05-15 11:59 | Emergency (ER) | payer OTHER ==
[2019-05-15 14:18] VITALS: BP 141/95
--- NOTE | 2019-05-15 15:53 | ED ---
Throat Pain/Nasal Congestion - HPI Summary HPI Summary: Patient is a 23-year-old female who presents emergency department for dental pain times several days. Patient states she currently does not have a dentist. She feel she has an abscess to her top upper teeth and states that her wisdom teeth are coming in as well and are painful. Symptoms are mild in severity. Patient has been taking Tylenol Motrin with no improvement of pain. Patient denies past medical history. No current modifying factors. - History of Current Complaint Chief Complaint: EDDentalPain Time Seen by Provider: 05/15/19 13:32 Hx Obtained From: Patient - Allergies/Home Medications Allergies/Adverse Reactions: Allergies Allergy/AdvReac Type Severity Reaction Status Date / Time bee venom protein (honey bee) Allergy Severe Swelling Verified 10/29/18 01:54 bupropion [From Wellbutrin] Allergy Hives Verified 10/29/18 01:54 pumpkin Allergy Hives Verified 10/29/18 01:54 PMH/Surg Hx/FS Hx/Imm Hx Previously Healthy: Yes Endocrine/Hematology History: Denies: Hx Diabetes, Hx Thyroid Disease Cardiovascular History: Reports: Hx Hypertension - NO MEDS Respiratory History: Denies: Hx Asthma, Hx Chronic Obstructive Pulmonary Disease (COPD) GI History: Denies: Hx Ulcer History: Reports: 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 Musculoskeletal History: Reports: Hx Back Problems Sensory History: Reports: Hx Contacts or Glasses Denies: Hx Hearing Aid Opthamlomology History: Reports: Hx Contacts or Glasses Neurological History: Reports: Hx Migraine Psychiatric History: Reports: Hx Anxiety, Hx Depression Denies: Hx Eating Disorder, Hx of Violent Episodes Against Others Infectious Disease History: No Infectious Disease History: Denies: Hx Clostridium Difficile, Hx Hepatitis, Hx Human Immunodeficiency Virus (HIV), Hx of Known/Suspected MRSA, Hx Shingles, Hx Tuberculosis, Hx Known/ Suspected VRE, Hx Known/Suspected VRSA, History Other Infectious Disease, Traveled Outside the [place] in Last 30 Days - Family History Known Family History: Positive: Non-Contributory Negative: Cardiac Disease, Hypertension, Diabetes - Social History Occupation: Unemployed Lives: With Family Alcohol Use: None Substance Use Type: Reports: None Substance Use Comment - Amount & Last Used: Stopped smoking at 8 weeks Hx Tobacco Use: Yes Smoking Status (MU): Heavy Every Day Tobacco Smoker Type: Cigarettes Amount Used/How Often: 1-7 cigarettes/day Review of Systems Constitutional: Negative Negative: Fever, Chills Positive: Dental Pain Gastrointestinal: Negative Skin: Negative All Other Systems Reviewed And Are Negative: Yes Physical Exam Triage Information Reviewed: Yes Vital Signs On Initial Exam: Initial Vitals Temp Pulse Resp BP Pulse Ox 98.2 F 87 19 137/83 97 05/15/19 12:01 05/15/19 12:01 05/15/19 12:01 05/15/19 12:01 05/15/19 12:01 Vital Signs Reviewed: Yes Appearance: Positive: Well-Appearing - Pt. sitting on bed in NAD. Skin: Positive: Warm, Dry Head/Face: Positive: Normal Head/Face Inspection Eyes: Positive: Normal, EOMI ENT: Positive: Pharynx normal. Negative: Tonsillar swelling, Tonsillar exudate Dental: Positive: Other - Pain to left lateral top incisor. No drainable abscess. No facial edema. No swelling under tongue. No trismus or submandibular edema. Neck: Positive: Supple Neurological: Positive: Normal, CN Intact II-III Psychiatric: Positive: Affect/Mood Appropriate Procedures - Sedation Patient Received Moderate/Deep Sedation with Procedure: No Diagnostics - Vital Signs Vital Signs Temp Pulse Resp BP Pulse Ox 05/15/19 14:10 98.0 F 64 14 141/95 97 05/15/19 12:01 98.2 F 87 19 137/83 97 - Laboratory Lab Statement: Any lab studies that have been ordered have been reviewed, and results considered in the medical decision making process. EENT Course/Dx - Course Course Of Treatment: Patient with dental pain. She is afebrile well-appearing. Will start on penicillin. Advised to continue Tylenol or Motrin for pain as directed. Patient given a list of local dentists and advised to follow-up as soon as possible. We'll return to the ER if symptoms change or worsen. Patient understands and agrees with plan. - Differential Diagnoses Differential Diagnoses: Dental Abscess, Dental Caries, Lui's Angina - Diagnoses Provider Diagnoses: Dentalgia Discharge ED - Sign-Out/Discharge Documenting (check all that apply): Patient Departure - Discharge Plan Condition: Good Disposition: HOME Prescriptions: Penicillin VK 500 MG TAB(NF) [Penicillin VK 500 mg Tab] 500 mg PO QID #40 tab Patient Education Materials: Toothache (ED) Referrals: [facility] [Outside] Additional Instructions: Please see a dentist as soon as possible Antibiotic as directed Can rotate between tylenol and motrin every 3 hours as directed for pain Return to ER if symptoms change or worsen - Billing Disposition and Condition Condition: GOOD Disposition: Home - Attestation Statements Provider Attestation: I was available for consultation for this patient. I did not evaluate the patient, or participate in any medical decision making or disposition decisions unless I am specifically named in the chart as having consulted on the patient. If I have consulted on the patient, please see my own ED note on the patient encounter. Pratik Lozoya MD
== END 2019-05-15 14:10 | disposition home or self-care (01) ==
LOC: ED 11:59
DX: K08.89 Other specified disorders of teeth and supporting structures (principal); I10 Essential (primary) hypertension; Z91.030 Bee allergy status; Z88.8 Allergy status to other drugs, medicaments and biological substances; Z91.018 Allergy to other foods; F17.210 Nicotine dependence, cigarettes, uncomplicated
CPT/HCPCS: 99282

== ENCOUNTER 2019-05-16 19:45 | Emergency (ER) | payer OTHER ==
[2019-05-16] MEDS ORDERED: Clindamycin CAP* 150 MG PO ONE (21:39)
[2019-05-16] MEDS ORDERED: Lidocaine 2% VISCOUS* 15 ML UDC PO ONE (21:39)
[2019-05-16] MEDS ORDERED: oxyCODONE TAB* 5 MG TAB PO ONE (21:43)
--- NOTE | 2019-05-16 21:56 | ED ---
Throat Pain/Nasal Congestion - HPI Summary HPI Summary: C/o left upper dental pain and abscess. Pt seen here yest for dental pain x 4 days, started on penecillin. Pt presents today with new onset left facial swelling and erythema involving jaw, cheek. Denies fever, sore throat, cough, cp , sob, N/V/D, ab pain, urine sx. Pt taking ibuprofen without relief. - History of Current Complaint Chief Complaint: EDDentalPain Time Seen by Provider: 05/16/19 20:39 Hx Obtained From: Patient Onset/Duration: Lasting Days Severity: Severe Associated Signs And Symptoms: Positive: Negative Cough: None - Allergies/Home Medications Allergies/Adverse Reactions: Allergies Allergy/AdvReac Type Severity Reaction Status Date / Time bee venom protein (honey bee) Allergy Severe Swelling Verified 05/16/19 20:18 bupropion [From Wellbutrin] Allergy Hives Verified 05/16/19 20:18 pumpkin Allergy Hives Verified 05/16/19 20:18 PMH/Surg Hx/FS Hx/Imm Hx Endocrine/Hematology History: Denies: Hx Diabetes, Hx Thyroid Disease Cardiovascular History: Reports: Hx Hypertension - NO MEDS Respiratory History: Denies: Hx Asthma, Hx Chronic Obstructive Pulmonary Disease (COPD) GI History: Denies: Hx Ulcer History: Reports: 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 Musculoskeletal History: Reports: Hx Back Problems Sensory History: Reports: Hx Contacts or Glasses Denies: Hx Hearing Aid Opthamlomology History: Reports: Hx Contacts or Glasses EENT History: Denies: Hx Deafness Neurological History: Reports: Hx Migraine Psychiatric History: Reports: Hx Anxiety, Hx Depression Denies: Hx Eating Disorder, Hx of Violent Episodes Against Others Infectious Disease History: No Infectious Disease History: Denies: Hx Clostridium Difficile, Hx Hepatitis, Hx Human Immunodeficiency Virus (HIV), Hx of Known/Suspected MRSA, Hx Shingles, Hx Tuberculosis, Hx Known/ Suspected VRE, Hx Known/Suspected VRSA, History Other Infectious Disease, Traveled Outside the [place] in Last 30 Days - Family History Known Family History: Positive: Non-Contributory Negative: Cardiac Disease, Hypertension, Diabetes - Social History Alcohol Use: None Substance Use Type: Reports: None Substance Use Comment - Amount & Last Used: Stopped smoking at 8 weeks Hx Tobacco Use: Yes Smoking Status (MU): Heavy Every Day Tobacco Smoker Type: Cigarettes Amount Used/How Often: 1-7 cigarettes/day Review of Systems Constitutional: Negative Eyes: Negative Positive: Dental Pain Cardiovascular: Negative Respiratory: Negative Gastrointestinal: Negative Genitourinary: Negative Musculoskeletal: Negative Skin: Negative Neurological: Negative Psychological: Normal All Other Systems Reviewed And Are Negative: Yes Physical Exam - Summary Physical Exam Summary: Apical abscess left upper gum above incisors. Swelling and erythema to left side face and jaw involving inferior periorbital area. Fave tender and warm to palpation. Full ROM of jaw. ENT exam otherwise nml. Triage Information Reviewed: Yes Vital Signs On Initial Exam: Initial Vitals Temp Pulse Resp BP Pulse Ox 98.5 F 84 20 173/106 99 05/16/19 20:14 05/16/19 20:14 05/16/19 20:14 05/16/19 20:14 05/16/19 20:14 Vital Signs Reviewed: Yes Appearance: Positive: Well-Appearing Skin: Positive: Warm Head/Face: Positive: Normal Head/Face Inspection Eyes: Positive: Normal ENT: Positive: Normal ENT inspection Dental: Positive: Abscess @ Neck: Positive: Supple Respiratory/Lung Sounds: Positive: Clear to Auscultation Cardiovascular: Positive: Normal Abdomen Description: Positive: Nontender Musculoskeletal: Positive: Normal Neurological: Positive: Normal Psychiatric: Positive: Normal AVPU Assessment: Alert - Andres Coma Scale Best Eye Response: 4 - Spontaneous Best Motor Response: 6 - Obeys Commands Best Verbal Response: 5 - Oriented Coma Scale Total: 15 Procedures - Sedation Patient Received Moderate/Deep Sedation with Procedure: No - Incision and Drainage 1 Site: upper left gum Anesthesia: Topical, Lidocaine Instrument(s): Scalpel Diagnostics - Vital Signs Vital Signs Temp Pulse Resp BP Pulse Ox 05/16/19 20:14 98.5 F 84 20 173/106 99 - Laboratory Result Diagrams: 05/16/19 22:30 05/16/19 22:30 Lab Statement: Any lab studies that have been ordered have been reviewed, and results considered in the medical decision making process. EENT Course/Dx - Course Course Of Treatment: C/o left upper dental pain and abscess. Pt seen here yest for dental pain x 4 days, started on penecillin. Pt presents today with new onset left facial swelling and erythema involving jaw, cheek. Denies fever, sore throat, cough, cp, sob, N/V/D, ab pain, urine sx. Pt taking ibuprofen without relief. VS wnl. WBC 21.7, CRP 57. Labs otherwise nml. I&D performed with + purulent drainage. Started on clindamycin, stopped penecillin. Also evaluated by Dr Zaragoza. CT maxillofacial with contrast positive for abscess. - Diagnoses Provider Diagnoses: Pain, dental, Dental abscess Discharge ED - Sign-Out/Discharge Documenting (check all that apply): Patient Departure - Discharge Plan Condition: Stable Disposition: HOME Prescriptions: Clindamycin HCl 450 mg PO TID 7 Days #63 capsule Lidocaine 2% VISCOUS* [Xylocaine 2% Viscous*] 15 ml SWISH SPIT Q6H PRN #1 btl PRN Reason: Pain - Severe Oxycodone HCl 5 mg PO TID 2 Days #6 tablet MDD 3 tabs Patient Education Materials: Dental Abscess (ED), Toothache (ED) Referrals: No Primary Care Phys,NOPCP [Primary Care Provider] - Additional Instructions: Stop taking penicillin. Start taking clindamycin as directed for dental abscess. Alternate ibuprofen 600 mg with Tylenol 650 mg every 3 hours as needed for pain. Take oxycodone as needed for pain. Follow-up with your dentist as soon as possible. As Dentist about Radicular Cyst in Right and Left Maxillary Incisors. - Billing Disposition and Condition Condition: STABLE Disposition: Home
[2019-05-16 22:42] LABS: ABS Basophils 0.1 10^3/ul (0-0.2); ABS Lymphocytes 1.1 10^3/ul (1.0-4.8); ABS Monocytes 1.3 10^3/ul (0-0.8); ABS Neutrophils 19.2 10^3/ul (1.5-7.7); Eosinophil % 0.2 %; Hematocrit 43 % (35-47); Hemoglobin 14.4 g/dL (12.0-16.0); Lymphocyte % 5.3 %; Mean Corpuscular HGB Conc 33 g/dL (31-36); Mean Corpuscular Hemoglobin 31 pg (27-31); Mean Corpuscular Volume 92 fL (80-97); Mean Platelet Volume 8.2 fL (7.4-10.4); Platelet Count 198 10^3/uL (150-450); Red Blood Count 4.73 10^6 /uL (3.70-4.87); Red Cell Distribution Width 13 % (10-15); White Blood Count 21.7 10^3/uL (3.5-10.8)
[2019-05-16 22:59] LABS: ALT 16 U/L (7-52); AST 15 U/L (13-39); Albumin 4.6 g/dL (3.2-5.2); Albumin/Globulin Ratio 1.4 (1-3); Alkaline Phosphatase 61 U/L (34-104); Anion Gap 7 mmol/L (2-11); BUN/Creatinine Ratio 16.1 (8-20); Blood Urea Nitrogen 9 mg/dL (6-24); C Reactive Protein 57.63 mg/L (<8.01); CO2 Carbon Dioxide 26 mmol/L (22-32); Calcium 9.7 mg/dL (8.6-10.3); Chloride 103 mmol/L (101-111); EGFR African American 165.4 (>60); EGFR Non-African American 136.7 (>60); Globulin 3.3 g/dL (2-4); Glucose 101 mg/dL (70-100); Potassium 3.8 mmol/L (3.5-5.0); Sodium 136 mmol/L (135-145); Total Protein 7.9 g/dL (6.4-8.9)
[2019-05-16 23:06] LABS: HCG Pregnancy < 0.60 mIU/mL
[2019-05-16] MEDS ORDERED: Iohexol 300* (CONTRAST) 10 ML SDV IV ONE (23:22)
[2019-05-17 01:12] VITALS: BP 155/90
== END 2019-05-17 01:11 | disposition home or self-care (01) ==
LOC: ED 19:45
DX: K04.7 Periapical abscess without sinus (principal); K08.89 Other specified disorders of teeth and supporting structures; F17.210 Nicotine dependence, cigarettes, uncomplicated
CPT/HCPCS: 10060; 36415; 41800; 70487; 80053; 83605; 84702; 85025; 86140; 99282; A9270-GY; Q9967

== ENCOUNTER 2019-06-26 23:38 | Emergency (ER) | payer OTHER ==
--- NOTE | 2019-06-27 00:12 | ED ---
GI/ HPI - HPI Summary HPI Summary: Patient is a 23 y/o F presenting to [facility] with complaints of dysuria, burning sensation with urination, clear vaginal discharge, vaginal swelling and pain, "welts" at her vaginal area. She also notes chills, cold sweats, diarrhea, and blood per rectum. She reports that dysuria, burning sensation with urination, and vaginal discharge onset two days ago. Vaginal swelling, pain, and "welts" onset 06/26/19. Patient has been using BV cream to treat Sx with some relief. She states that she has been having an anxiety attack today due to Sx. Patient is concerned for STIs. Patient states that she has three male sexual partners currently. One is her "best friend" and the other two she has known for the past several months. Patient states that she has unprotected sex and has IUD in place. On triage, pain is rated 10/10. Home medications and allergies are reviewed. Female friend is present in the room. - History of Current Complaint Chief Complaint: EDUrogenitalProblems Time Seen by Provider: 06/27/19 00:03 Stated Complaint: POSS UTI PER PT Hx Obtained From: Patient Hx Last Menstrual Period: 1 WEEK AGO, SPOTTING Onset/Duration: Started Hours Ago, Started Days Ago, Still Present Timing: Lasting Hours, Lasting Days Severity: Severe Current Severity: Severe Pain Intensity: 10 Additional Location for Females: Vulva Associated Signs and Symptoms: Positive: Diarrhea, Dysuria, Chills, UTI Symptoms , Other: - positive - cold sweats, blood per rectum, anxiety Additional Signs & Symptoms: Positive: Genital Swelling, Vaginal Discharge, Other: - positive - vaginal pain and "welts" Alleviating Factor(s): Medication - Additional Pertinent History Primary Care Physician: [id number] - Allergy/Home Medications Allergies/Adverse Reactions: Allergies Allergy/AdvReac Type Severity Reaction Status Date / Time bee venom protein (honey bee) Allergy Severe Swelling Verified 06/26/19 23:42 bupropion [From Wellbutrin] Allergy Hives Verified 06/26/19 23:42 pumpkin Allergy Hives Verified 06/26/19 23:42 sertraline [From Zoloft] Allergy Hives Verified 06/26/19 23:42 PMH/Surg Hx/FS Hx/Imm Hx Endocrine/Hematology History: Denies: Hx Diabetes, Hx Thyroid Disease Cardiovascular History: Reports: Hx Hypertension - NO MEDS Respiratory History: Denies: Hx Asthma, Hx Chronic Obstructive Pulmonary Disease (COPD) GI History: Denies: Hx Ulcer History: Reports: 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 Musculoskeletal History: Reports: Hx Back Problems Sensory History: Reports: Hx Contacts or Glasses Denies: Hx Deafness, Hx Hearing Aid Opthamlomology History: Reports: Hx Contacts or Glasses Neurological History: Reports: Hx Migraine Psychiatric History: Reports: Hx Anxiety, Hx Depression Denies: Hx Eating Disorder, Hx of Violent Episodes Against Others Infectious Disease History: No Infectious Disease History: Denies: Hx Clostridium Difficile, Hx Hepatitis, Hx Human Immunodeficiency Virus (HIV), Hx of Known/Suspected MRSA, Hx Shingles, Hx Tuberculosis, Hx Known/ Suspected VRE, Hx Known/Suspected VRSA, History Other Infectious Disease, Traveled Outside the [place] in Last 30 Days - Family History Known Family History: Negative: Cardiac Disease, Hypertension, Diabetes - Social History Alcohol Use: None Substance Use Type: Reports: None Substance Use Comment - Amount & Last Used: Stopped smoking at 8 weeks Hx Tobacco Use: Yes Smoking Status (MU): Heavy Every Day Tobacco Smoker Type: Cigarettes Amount Used/How Often: 1-7 cigarettes/day Review of Systems Constitutional: Other - positive - cold sweats Positive: Chills Gastrointestinal: Other - positive - blood per rectum Positive: Diarrhea Genitourinary: Other - positive - burning with urination, vaginal pain and swelling, "welts" at vaginal area Positive: dysuria, discharge - vaginal Positive: Anxious All Other Systems Reviewed And Are Negative: Yes Physical Exam - Summary Physical Exam Summary: Appearance: Well-appearing, Well-nourished, lying in bed comfortable Skin: Warm, dry, no obvious rash Eyes: sclera anicteric, no conjunctival pallor ENT: mucous membranes moist Neck: deferred Respiratory: No signs of respiratory distress Cardiovascular: Appears well perfused, pulses are nml Abdomen: deferred : multiple vesicular lesions to vulva, some of which have become to ulcerate. Female screening nurse present for exam. Musculoskeletal: Moving all 4 extremities without obvious discomfort Neurological: Awake and alert, mentation is normal, speech is fluent and appropriate Psychiatric: affect is normal, does not appear anxious or depressed Triage Information Reviewed: Yes Vital Signs On Initial Exam: Initial Vitals Temp Pulse Resp BP Pulse Ox 98.2 F 93 15 153/97 99 06/26/19 23:40 06/26/19 23:40 06/26/19 23:40 06/26/19 23:40 06/26/19 23:40 Vital Signs Reviewed: Yes Procedures - Sedation Patient Received Moderate/Deep Sedation with Procedure: No Diagnostics - Vital Signs Vital Signs Temp Pulse Resp BP Pulse Ox 06/26/19 23:40 98.2 F 93 15 153/97 99 - Laboratory Lab Statement: Any lab studies that have been ordered have been reviewed, and results considered in the medical decision making process. GIGU Course/Dx - Course Course Of Treatment: Patient is a 23 y/o F presenting to [facility] with complaints of dysuria, burning sensation with urination, clear vaginal discharge, vaginal swelling and pain, "welts" at her vaginal area. She also notes chills, cold sweats, diarrhea, and blood per rectum. She reports that dysuria, burning sensation with urination, and vaginal discharge onset two days ago. Vaginal swelling, pain, and "welts" onset 06/26/19. Patient has been using BV cream to treat Sx with some relief. She states that she has been having an anxiety attack today due to Sx. Patient is concerned for STIs. Patient states that she has three male sexual partners currently. One is her "best friend" and the other two she has known for the past several months. Patient states that she has unprotected sex and has IUD in place. On physical exam, multiple vesicular lesions to vulva, some of which have become to ulcerate. Female screening nurse present for exam. UA showed 2+ blood, 2+ leukocyte esterase, 3+ WBC, 3+ RBC , squamous epith cells present. Syphilis, HSV, HIV, and GC/Chlamydia tests ordered, patient to be called with positive results. Patient given Valtrex, 1 gm in ED and prescription for this medication. Patient discharged to home and will follow up with PCP as needed. - Diagnoses Provider Diagnoses: Genital herpes Discharge ED - Sign-Out/Discharge Documenting (check all that apply): Patient Departure - DISCHARGE - Discharge Plan Condition: Stable Disposition: HOME Prescriptions: Doxycycline Hyclate 100 mg PO BID #20 tablet ValACYclovir (*) [Valtrex 500 mg (*)] 1,000 mg PO BID #14 tab Patient Education Materials: Genital Herpes Simplex (ED) Referrals: [facility] [Outside] - If Needed - Billing Disposition and Condition Condition: STABLE Disposition: Home - Attestation Statements Document Initiated by Argelia: Yes Documenting Scribe: SHERICE JORDAN Provider For Whom Argelia is Documenting (Include Credential): VIJI MAGANA MD Scribrudy Attestation: SHERICE Cohen, scribed for VIJI MAGANA MD on 06/28/19 at 0347. Scribe Documentation Reviewed: Yes Provider Attestation: The documentation as recorded by the SHERICE evans accurately reflects the service I personally performed and the decisions made by me, VIJI MAGANA MD Status of Scribe Document: Viewed
[2019-06-27 00:49] LABS: Urine Appearance Cloudy; Urine Bilirubin Negative (Negative); Urine Blood 2+ (Negative); Urine Color Yellow; Urine Glucose Negative (Negative); Urine Ketones Negative (Negative); Urine Nitrite Negative (Negative); Urine Protein Negative (Negative); Urine Specific Gravity 1.015 (1.010-1.030); Urine Urobilinogen Negative (Negative)
[2019-06-27 00:52] LABS: Urine Bacteria Absent (Absent); Urine Red Blood Cell 3+(>10/hpf) (Absent); Urine Squamous Epithelial Cell Present (Absent); Urine White Blood Cell 3+(>20/hpf) (Absent)
[2019-06-27 00:57] VITALS: BP 132/75
[2019-06-27] MEDS ORDERED: ValACYclovir (*) 1 GM TAB PO SCH (01:00)
[2019-06-27 01:44] LABS: HIV 4th Generation Nonreactive (Nonreactive)
[2019-06-27 14:11] LABS: Chlamydia trachomatis NAA Positive (Negative)
[2019-06-27 14:23] LABS: Neisseria gonorrhoeae (GC) NAA Positive (Negative)
--- NOTE | 2019-06-27 14:40 | ED ---
Imaging and Labs Follow Up Follow Up Type: Labs/Cultures Labs/Culture Result: Positive gonorrhea and chlamydia. Patient Communication/Plan: Pt. not treated in ED. Attempted to call pt. today at 1435. Pt.'s mother answered phone and states [place] does not live there. She gave me a phone of but call could not be connected. Will send rx for doxycycline and send letter. Ask pt.'s mother to have her call the ER if she speaks with her today. Provider Diagnoses: Genital herpes
[2019-06-28 16:01] LABS: Herpes Source VAGINAL LESION
--- NOTE | 2019-06-29 05:43 | ED ---
Imaging and Labs Follow Up Follow Up Type: Labs/Cultures Labs/Culture Result: Pt was seen in the ED on 06/27. Pt not treated at time, however cultures returned with GC/Chlaymdia. Other provider attempted to reach patient, sent letter and sent RX to pharmacy. [facility] Department called ED on 06/28. We were able to state we attempted at reaching the patient with no success. Pt currently has dx of GC/chlaymdia/HSV II and mild UTI. If patient returns call or returns to the ED, better coverage with 250mg IM Rocephin should be given for GC coverage. Patient Communication/Plan: pt no answer - letter sent Patient Communication/Plan: pt unaware of results, unable to get ahold of patient Provider Diagnoses: Genital herpes
--- NOTE | 2019-06-30 17:13 | ED ---
Imaging and Labs Follow Up Follow Up Type: Labs/Cultures Labs/Culture Result: Pt called back to ED in afternoon on 06/30/19 and left message with mileage clerk. Gave phone # [phone] (not her personal cell, but sharing a phone) Provider called back throughout the afternoon from 2p-5p with no answer. Will continue to try to reach patient. Left message at 3pm to call back to ED - gave phone number Patient Communication/Plan: Called patient on 06/30 Patient Communication/Plan: called patient back Provider Diagnoses: Genital herpes
--- NOTE | 2019-07-01 12:50 | ED ---
Imaging and Labs Follow Up Follow Up Type: Labs/Cultures Labs/Culture Result: Positive gonorrhea, chlamydia, herpes Patient Communication/Plan: Pt answered Patient Communication/Plan: Called patient again at 12:45 PM, patient answered Discussed it is imperative she return to the ED or UC for a Rocephin 250 mg IM to cover gonorrhea She states she will return to the ED or UC later this afternoon Provider Diagnoses: Genital herpes
== END 2019-06-27 00:52 | disposition home or self-care (01) ==
LOC: ED 23:38
DX: A60.00 Herpesviral infection of urogenital system, unspecified (principal); I10 Essential (primary) hypertension; F41.9 Anxiety disorder, unspecified; F32.9 Major depressive disorder, single episode, unspecified; F17.210 Nicotine dependence, cigarettes, uncomplicated; Z88.8 Allergy status to other drugs, medicaments and biological substances
CPT/HCPCS: 36415; 81003; 81015; 86780; 87077; 87086; 87389; 87491; 87529; 87591; 99282; A9270-GY

== ENCOUNTER 2019-09-18 00:33 | Emergency (ER) | payer OTHER ==
[2019-09-18] MEDS ORDERED: Ibuprofen TAB* 400 MG PO ONE (03:14)
--- NOTE | 2019-09-18 03:20 | ED ---
HPI Chest Pain - HPI Summary HPI Summary: This pt is a 24 Y/O F presenting to [facility] with a CC of chest pain that began at 2300 09/17/2019. She states that she was relaxing in a chair when she had L anterior CP that was rated a 9/10 in severity. She states that she also had SOB and fatigue at the onset. She denies any fevers, headaches N/V, and abdominal pains. 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 She states that she has an IUD that prevents her from getting her period. She states that she smokes 2 packs a day and has been drinking last night and early this morning. She also reports using cocaine and marijuana last night and early this morning as well. She states that she has a FHx of DM and HTN. She has no aggravating or alleviating factors. - History of Current Complaint Chief Complaint: EDChestWallPain Time Seen by Provider: 09/18/19 02:27 Hx Obtained From: Patient Hx Last Menstrual Period: 1 WEEK AGO, SPOTTING Onset/Duration: Started Hours Ago, Still Present Time of Onset: 23:00 Timing: Constant Initial Severity: Severe Current Severity: Severe Pain Intensity: 9 Pain Scale Used: 0-10 Numeric Chest Pain Location: Discrete at:, Left Anterior Chest Pain Radiates: No Aggravating Factor(s): Alcohol, Other: - cocaine, marijuana Alleviating Factor(s): Nothing Associated Signs and Symptoms: Positive: Negative - negative, Chest Pain, Shortness of Breath, Other: - fatigue. Negative: Headaches, Fever, Abdominal Pain, Vomiting - Additional Pertinent History Primary Care Physician: BEHZAD - Allergy/Home Medications Allergies/Adverse Reactions: Allergies Allergy/AdvReac Type Severity Reaction Status Date / Time bee venom protein (honey bee) Allergy Severe Swelling Verified 06/26/19 23:42 bupropion [From Wellbutrin] Allergy Hives Verified 06/26/19 23:42 pumpkin Allergy Hives Verified 06/26/19 23:42 sertraline [From Zoloft] Allergy Hives Verified 06/26/19 23:42 Home Medications: Home Medications NK [No Home Medications Reported] 09/18/19 [History Confirmed 09/18/19] PMH/Surg Hx/FS Hx/Imm Hx Previously Healthy: Yes Endocrine/Hematology History: Denies: Hx Diabetes, Hx Thyroid Disease Cardiovascular History: Reports: Hx Hypertension - NO MEDS Respiratory History: Denies: Hx Asthma, Hx Chronic Obstructive Pulmonary Disease (COPD) GI History: Denies: Hx Ulcer History: Reports: 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 Musculoskeletal History: Reports: Hx Back Problems Sensory History: Reports: Hx Contacts or Glasses Denies: Hx Deafness, Hx Hearing Aid Opthamlomology History: Reports: Hx Contacts or Glasses Neurological History: Reports: Hx Migraine Psychiatric History: Reports: Hx Anxiety, Hx Depression Denies: Hx Eating Disorder, Hx of Violent Episodes Against Others - Cancer History Hx Chemotherapy: No Hx Radiation Therapy: No - Surgical History Surgical History: None - Immunization History Immunizations Up to Date: Yes Infectious Disease History: No Infectious Disease History: Denies: Hx Clostridium Difficile, Hx Hepatitis, Hx Human Immunodeficiency Virus (HIV), Hx of Known/Suspected MRSA, Hx Shingles, Hx Tuberculosis, Hx Known/ Suspected VRE, Hx Known/Suspected VRSA, History Other Infectious Disease, Traveled Outside the [place] in Last 30 Days - Family History Known Family History: Positive: Non-Contributory Negative: Cardiac Disease, Hypertension, Diabetes - Social History Lives: With Family Alcohol Use: Daily Alcohol Amount: "1 bottle of patron" in 24 hours Hx Substance Use: Yes Substance Use Type: Reports: Cocaine, Marijuana Substance Use Comment - Amount & Last Used: Stopped smoking at 8 weeks Hx Tobacco Use: Yes Smoking Status (MU): Heavy Every Day Tobacco Smoker Type: Cigarettes Amount Used/How Often: 1-7 cigarettes/day Review of Systems Negative: Fever Positive: Chest Pain Positive: Shortness Of Breath Negative: Abdominal Pain, Vomiting, Nausea Negative: Headache All Other Systems Reviewed And Are Negative: Yes Physical Exam - Summary Physical Exam Summary: General: Well-developed, Well-nourished, Thin sleepy female. No acute distress. HEENT: Normocephalic, Atraumatic. Eyes: Conjuctiva normal, PERRL. Ears: TMs within normal limits. Nares: (-) discharge, (-) erythema. Oropharynx: Clear, mucous membranes moist, (-) exudates. Neck: Soft, FROM, (-) lymphadenopathy, (-) thyromegaly, (-) JVD. Cardiovascular: Normal sinus rhythm, (-) murmur. Lungs: Clear to auscultation bilaterally (-) wheezes, (-) rales, (-) rhonchi. Abdomen: Soft, non-tender, non-distended, (-) organomegaly, normal bowel sounds. Back: (-) CVA tenderness Extremities: No edema. Skin: Warm, dry, (-) rash. Neuro: Alert and oriented x3, no focal deficits. Psychiatric: Mood normal, affect normal. Triage Information Reviewed: Yes Vital Signs On Initial Exam: Initial Vitals Temp Pulse Resp BP Pulse Ox 98.1 F 69 16 122/51 98 09/18/19 00:45 09/18/19 00:45 09/18/19 00:45 09/18/19 00:45 09/18/19 00:45 Vital Signs Reviewed: Yes Procedures - Sedation Patient Received Moderate/Deep Sedation with Procedure: No Diagnostics - Vital Signs Vital Signs Temp Pulse Resp BP Pulse Ox 09/18/19 02:14 61 19 98 09/18/19 00:45 98.1 F 69 16 122/51 98 - Laboratory Result Diagrams: 09/18/19 03:18 09/18/19 03:18 Lab Statement: Any lab studies that have been ordered have been reviewed, and results considered in the medical decision making process. Chest Pain Course/Dx - Course Course Of Treatment: 24-year-old female presents from home with chest pain. She said it started 11:00 last night as she was relaxing in a chair. Describes the pain as left-sided, 9 out of 10. Patient has multiple vague symptoms. She does describe shortness of breath and fatigue. No fevers or chills or cough. No headache. No nausea vomiting diarrhea. She does admit to smoking 2 packs of cigarettes a day. States she's been drinking for the last 36 hours. And admits to cocaine use recently. On physical exam patient is a thin female. Sleepy. No significant physical findings. Workup demonstrates a cane on drug screen. No alcohol. Troponin negative. Patient discharged home. Follow-up with PCP. Follow-up sooner for any worsening symptoms. - Diagnoses Provider Diagnoses: Chest wall pain, Cocaine abuse Discharge ED - Sign-Out/Discharge Documenting (check all that apply): Patient Departure - discharge - Discharge Plan Condition: Good Disposition: HOME Patient Education Materials: Cocaine Abuse (ED), Chest Wall Pain (ED) Referrals: [facility] [Outside] - 2 Days Additional Instructions: PLEASE FOLLOW UP WITH THE [facility] IN THE NEXT 1-3 DAYS AND RETURN TO THE EMERGENCY DEPARTMENT FOR ANY NEW OR WORSENING SYMPTOMS. - Billing Disposition and Condition Condition: GOOD Disposition: Home - Attestation Statements Document Initiated by Scribe: Yes Documenting Scribe: Anand Montenegro Provider For Whom Scribe is Documenting (Include Credential): Montse Carbone MD Scribe Attestation: Anand Cohen, scribed for Montse Carbone MD on 09/19/19 at 0506. Scribe Documentation Reviewed: Yes Provider Attestation: The documentation as recorded by the Anand evans accurately reflects the service I personally performed and the decisions made by , Montse Carbone MD Status of Scribe Document: Viewed
[2019-09-18 03:44] LABS: ABS Basophils 0.1 10^3/ul (0-0.2); ABS Eosinophils 0.2 10^3/ul (0-0.6); ABS Lymphocytes 2.8 10^3/ul (1.0-4.8); ABS Monocytes 0.9 10^3/ul (0-0.8); ABS Neutrophils 3.2 10^3/ul (1.5-7.7); Eosinophil % 2.9 %; Hematocrit 39 % (35-47); Hemoglobin 13.8 g/dL (12.0-16.0); Lymphocyte % 39.6 %; Mean Corpuscular HGB Conc 35 g/dL (31-36); Mean Corpuscular Hemoglobin 32 pg (27-31); Mean Corpuscular Volume 91 fL (80-97); Mean Platelet Volume 8.8 fL (7.4-10.4); Nucleated Red Blood Cells % 0.1; Platelet Count 202 10^3/uL (150-450); Red Blood Count 4.28 10^6 /uL (3.70-4.87); Red Cell Distribution Width 13 % (10-15); White Blood Count 7.2 10^3/uL (3.5-10.8)
[2019-09-18 03:56] LABS: ALT 14 U/L (7-52); AST 17 U/L (13-39); Albumin/Globulin Ratio 1.5 (1-3); Alkaline Phosphatase 49 U/L (34-104); Anion Gap 3 mmol/L (2-11); BUN/Creatinine Ratio 17.1 (8-20); Blood Urea Nitrogen 12 mg/dL (6-24); CO2 Carbon Dioxide 29 mmol/L (22-32); Calcium 9.4 mg/dL (8.6-10.3); Chloride 107 mmol/L (101-111); EGFR African American 126.6 (>60); EGFR Non-African American 104.6 (>60); Globulin 2.6 g/dL (2-4); Glucose 107 mg/dL (70-100); Potassium 3.9 mmol/L (3.5-5.0); Sodium 139 mmol/L (135-145); Total Protein 6.6 g/dL (6.4-8.9)
[2019-09-18 04:02] LABS: HCG Pregnancy < 0.60 mIU/mL
[2019-09-18 04:05] LABS: Alcohol < 10 mg/dL (<10)
[2019-09-18 04:12] LABS: Urine Benzodiazepine Screen None Detected (None Detect); Urine Opiates Screen None Detected (None Detect)
[2019-09-18 05:11] VITALS: BP 118/55
== END 2019-09-18 05:09 | disposition home or self-care (01) ==
LOC: ED 00:33
DX: R07.89 Other chest pain (principal); F14.10 Cocaine abuse, uncomplicated; R06.02 Shortness of breath; R53.83 Other fatigue; I10 Essential (primary) hypertension; Z91.030 Bee allergy status; Z88.8 Allergy status to other drugs, medicaments and biological substances; Z91.018 Allergy to other foods; F17.210 Nicotine dependence, cigarettes, uncomplicated
CPT/HCPCS: 36415; 80053; 80307; 80320; 83605; 84484; 84702; 85025; 93005; 99282; A9270-GY; G0480